=== PATIENT | male | born 1965 | race Caucasian/White ===

== ENCOUNTER 2020-07-02 16:11 | Emergency (ER) | payer OTHER, SELFPAY ==
[2020-07-02 16:21] VITALS: BP 146/84; PULSE 55; RESP 16; TEMP 36.5; O2SAT 98
--- NOTE | 2020-07-02 16:29 | W.ED.GENAD ---
Discharge Plan Disposition Patient Disposition: HOME Condition: Good Discharge Details Clinical Impression: Contusion of right shoulder region, Contusion of rib Primary Care Provider: Hermelinda,Local ED Provider: Chelsie Dubon Home Meds and New Rx's Prescriptions: No Action No Known Home Meds RF: 0 Discharge Instructions Instructions: Acromioclavicular Separation (ED), Rib Contusion (ED) Additional Instructions: Your imaging did not show any dislocation or fracture. However, I am concerned that you may have an injury to your AC joint as we discussed. You may continue with sling while pain persist. Please encourage rest, ice, elevation. Tylenol and/or ibuprofen as needed for discomfort. Please follow-up with primary care in 2 weeks for reevaluation. I have asked care management to reach out to you to discuss referral to a physician locally if needed. If you develop shortness of breath, difficulty breathing, fevers or other new/worsening symptoms to seek care urgently once again. Discharge Data Discharge Date/Time-TO BE ENTERED AT DEPARTURE: 07/02/20 18:10 Medical Decision Making Patient is a pleasant 55-year-old [id number] male presented with chief complaint of right shoulder pain and left rib pain. He reports that prior to arrival he was skiing when he went over the front tip of his skis and landed striking his two areas. He denies striking his head. No loss conscious. He was helmeted at the time of the incident. Denies any nausea or vomiting. No pain in his back. Denies any shortness of breath or difficulty breathing. No nausea or vomiting. No pain in his abdomen. On exam, patient appears nontoxic. No palpable skull fracture. He does have swelling over the distal aspect of the clavicle but no displaced area. Is full range of motion of the elbow, wrist, hand. Range of the shoulder was limited secondary to pain in the clavicle. Neurovascularly intact in this extremity. He does have point tender over the lateral lower left rib. No pain over the abdomen. No crepitus. Lungs are clear in all trivedi. Pelvis is stable and nontender. Plan for x-ray of the left ribs as well as the right clavicle. Patient did take NSAID prior to arrival and reports that this is improving his discomfort. X-ray reviewed by radiologist: FINDINGS: Lungs: Unremarkable. No consolidation. Pleural spaces: Unremarkable. No pleural effusion. No pneumothorax. Heart/Mediastinum: Unremarkable. No cardiomegaly. Bones/joints: Unremarkable. IMPRESSION: No acute findings. FINDINGS: Bones/joints: Minimal acromioclavicular degenerative arthritis. Soft tissues: Normal. IMPRESSION: Minimal acromioclavicular degenerative arthritis Plan 50 findings per patient. Patient was fitted with a sling to help with shoulder discomfort. Given the location, I do remain concerned with potential minor AC joint injury. Elevation. Tylenol and/or ibuprofen for discomfort. Encourage deep inspiration help with his eye pain prevent shallow breathing. I did advise follow-up with primary care in the next 2 weeks if pain is not resolving. Patient unclear if he is resting in the area. I have asked her healthcare consulting manager to reach out to the patient on Saturday to see if follow-up locally will be warranted. Return precautions were discussed. He was continue with Tylenol and/or ibuprofen as needed for discomfort. All his questions or concerns were addressed and is in agreement plan. HPI General Mode of arrival: ambulatory. Date/Time Provider Initiated Documentation: 07/02/20 16:29. Limitations to Documentation: no limitations. Information obtained by: patient and RN notes reviewed. History of Present Illness 55 year old M presents to the emergency department with the chief complaint of right shoulder and left chest wall pain, described as moderate, with intensity rated at 7. Quality is described as aching, and is localized to the chest, left and upper extremity. Patient reports no radiation. Patient started experiencing this minute(s) and it has been constant. Immobilization improves symptom(s), and Medication improves symptom(s), Movement worsens symptoms . Patient notes no other symptoms.. Patient did receive the following treatments prior to arrival, NSAID Related Data Home Medications Medication Instructions Recorded Confirmed Unknown [No Known Home Meds] 07/02/20 07/02/20 Allergies Allergy/AdvReac Type Severity Reaction Status Date / Time No Known Allergies Allergy Unverified 07/02/20 16:26 General Stated Complaint: Trauma GLO: 2 Review of Systems Constitutional Constitutional: Reports as per HPI, Denies chills, Denies fatigue, Denies fever(s), Denies headache(s) and Denies weakness Eyes Eyes: Reports as per HPI, Denies blurry vision, Denies change in vision and Denies loss of vision ENT Ears, Nose, Mouth, and Throat: Denies abnormal hearing and Denies headache(s) Cardiovascular Cardiovascular: Reports as per HPI, Denies chest pain and Denies dyspnea Respiratory Respiratory: Reports as per HPI, Denies cough, Denies pain on inspiration, Denies pain with cough and Denies dyspnea Gastrointestinal Gastrointestinal: Reports as per HPI, Denies abdominal pain, Denies nausea and Denies vomiting Genitourinary Genitourinary: Reports as per HPI and Denies urinary incontinence Musculoskeletal Musculoskeletal: Reports as per HPI Integumentary/Breasts Skin/Breast: Reports as per HPI and Reports unusual bruising Neurologic Neurologic: Reports as per HPI, Denies abnormal hearing, Denies abnormal movements, Denies abnormal speech, Denies headache(s), Denies lack of coordination, Denies localized weakness, Denies loss of vision, Denies seizure-like activity, Denies paresthesias and Denies weakness Endocrine Endocrine: Denies fatigue [facility] Social History Smoking/Tobacco Use Status: Never Smoking risk assessment performed?: Yes Alcohol Intake: current Alcohol Intake frequency: holidays/special occasions only Drug use: Never Do you feel safe at home: Yes Do you feel safe in your relationship?: Yes Exam Const General: cooperative, healthy appearing, comfortable, no acute distress, well developed and well groomed Nutritional Appearance: average body habitus and well nourished Orientation: alert, awake and oriented x3 HENMT Head: normal to inspection, no palpable skull fracture, normocephalic and atraumatic Throat: posterior oropharynx normal Eyes General: appearance normal, both eyes and all related structures Visual Trivedi: normal visual trivedi by confrontation Alignment and Position: alignment normal Periorbital: periorbital findings normal Eyelids: eyelids normal Conjunctivae: conjunctivae normal Pupils: PERRL EOM: EOM intact bilaterally Neck Neck: normal visual inspection, full ROM, no lymphadenopathy, no meningeal signs, trachea midline and supple Chest Chest: normal inspection of the chest, normal palpation of entire chest wall, no crepitus and localized rib tenderness with anteroposterior compression (left lateral lower chest wall) Resp Effort & Inspection: normal respiratory effort, able to speak in complete sentences and no respiratory distress Auscultation: clear to auscultation bilaterally, no rales, no rhonchi and no wheezes Cardio Rate: regular rate Rhythm: regular rhythm Heart Sounds: S1 normal and S2 normal GI Inspection: normal to inspection, no abdominal wall ecchymosis, no edema and non-distended Palpation: soft, no hepatosplenomegaly, not firm, no guarding, no pulsatile masses, not rigid and nontender Auscultation: normal bowel sounds Back/Spine/Pelvis Back: no CVA tenderness Cervical Spine: normal cervical lordosis and cervical ROM normal Thoracic/Lumbar Spine: thoracic and lumbar spine normal to inspection, thoraco-lumbar ROM normal, No thoraco-lumbar ROM limited, No thoraco-lumbar spasm and No thoracic spinal tenderness Pelvis: no pain with anterior-posterior compression and no pain with lateral compression Skin General skin exam: ecchymosis (left shoulder) Neuro General: patient alert, patient awake, patient oriented x3, gait normal, tone normal and moves all extremities Cranial Nerves: CN's II-XI intact bilaterally Cognition: normal cognition Speech: speech normal Gait: normal gait Motor: muscle tone normal throughout and strength 5/5 throughout Sensory Exam: no sensory deficits noted (no saddle paresthesias) Extrem General: capillary refill normal Right upper extremity: normal capillary refill, no joint enlargement, shoulder/upper arm Details: normal to inspection (ecchymosis as drawn), tenderness Location: of the clavicle Laterality: laterally and of the A-C joint, swelling Location: of the A-C joint, axillary nerve sensory function normal and ecchymosis; ROM limited (does not want ot move shoulder secondary to pain), no lacerations, no crepitus, no penetrating wound, no deformity and no unusual warmth, elbow/forearm Details: normal to inspection, normal ROM and distal pulses intact; no tenderness and no swelling, wrist Details: normal to inspection and hand Details: normal to inspection, normal capillary refill, vascular exam Details: radial pulse present and normal capillary refill and normal ROM of fingers; ROM limited Shoulder/upper arm images: 1. focal area of ecchymosis. Tender over this area. Distal clavicle/AC joint. No break in the skin, no palpable deformity. Psych Appearance: grossly normal and well kempt Mental Status: mental status grossly normal Speech and Movement: speech and movement normal Course Vital Signs Vital signs: Vital Signs Temperature 36.5 C 07/02/20 16:21 Pulse 55 L 07/02/20 16:21 Respiratory Rate 16 02/06/21 16:21 Blood Pressure 146/84 H 07/02/20 16:21 Pulse Oximetry 98 07/02/20 16:21 Temperature 36.5 C 07/02/20 16:21 Temperature Source Temporal Artery Scan 07/02/20 16:21 Pulse 55 L 07/02/20 16:21 Respiratory Rate 16 07/02/20 16:21 Respiratory Effort Non-Labored 07/02/20 16:24 Blood Pressure 146/84 H 07/02/20 16:21 Blood Pressure Position Supine 07/02/20 16:21 Pulse Oximetry 98 07/02/20 16:21 Oxygen Delivery Method Room Air 07/02/20 16:21 Oxygen Flow Rate 0 07/02/20 16:21 Pain Level 7 07/02/20 16:21
--- NOTE | 2020-07-02 16:30 | DI.RAD_ITS ---
EXAM: XR CLAVICLE RT CLINICAL HISTORY: fall skiiing TECHNIQUE: 2D digital imaging was performed. COMPARISON: No exams were available for comparison FINDINGS: BONES: No acute fracture is present. No bony destructive lesion is seen. JOINTS: No dislocation present. 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 SOFT TISSUE: Normal IMPRESSION: No acute fracture or dislocation. DATA REPOSITORY: RADIATION DOSE DELIVERED:
--- NOTE | 2020-07-02 16:42 | DI.RAD_ITS ---
EXAM: XR RIBS LT PA CHEST 3V CLINICAL HISTORY: fall skiing TECHNIQUE: 2D digital imaging was performed. COMPARISON: No exams were available for comparison FINDINGS: MEDIASTINUM: Normal. HEART: Normal. PULMONARY VASCULATURE: Normal. LUNGS: Clear. PLEURAL SPACE: No pleural effusion or pneumothorax. BONE:Normal. LEFT RIBS: Normal. OTHER FINDINGS:Normal. IMPRESSION: 1. No acute pulmonary findings. 2. Unremarkable left ribs. DATA REPOSITORY: RADIATION DOSE DELIVERED:
--- NOTE | 2020-07-02 16:56 | NUR.NOTE ---
Nursing Note: Pt placed in sling per SHERIDAN Dubon , right arm. pt tolerated well , RUE radial present
--- NOTE | 2020-07-02 17:36 | DI.VRAD_ITS ---
PROCEDURE INFORMATION: Exam: XR Right Clavicle, Complete Exam date and time: 07/02/2020 4:43 PM Age: 55 years old Clinical indication: Injury or trauma; Fall; Sprain or strain; Clavicle; Right TECHNIQUE: Imaging protocol: XR Right clavicle complete. Any number of views. COMPARISON: No relevant prior studies available. FINDINGS: Bones/joints: Minimal acromioclavicular degenerative arthritis. Soft tissues: Normal. IMPRESSION: Minimal acromioclavicular degenerative arthritis. Dictated and Authenticated by: Maria C Brower MD. Ordering:HERNAN Holguin MD
--- NOTE | 2020-07-02 17:37 | DI.VRAD_ITS ---
PROCEDURE INFORMATION: Exam: XR Left Ribs with PA Chest, 3 Views Exam date and time: 07/02/2020 5:18 PM Age: 55 years old Clinical indication: Injury or trauma; Fall; Rib area, left side; Sprain or strain TECHNIQUE: Imaging protocol: XR Left ribs 3 views with PA chest. COMPARISON: No relevant prior studies available. FINDINGS: Lungs: Unremarkable. No consolidation. Pleural spaces: Unremarkable. No pleural effusion. No pneumothorax. Heart/Mediastinum: Unremarkable. No cardiomegaly. Bones/joints: Unremarkable. IMPRESSION: No acute findings. Dictated and Authenticated by: Maria C Brower MD. Ordering:HERNAN Holguin MD
--- NOTE | 2020-07-02 17:55 | NUR.NOTE ---
Nursing Note: Referral given to Care Management to call patient on Saturday to see if he is going to stay in the area or go back to [place] for his follow up. Then to arrange the follow up. Nicolasa Aleman
== END 2020-07-02 18:10 | disposition home or self-care (01) ==
PROVIDERS: Emergency Provider Physician Assistant
DX: S40.011A Contusion of right shoulder, initial encounter (principal); S20.212A Contusion of left front wall of thorax, initial encounter; V00.321A Fall from snow-skis, initial encounter; Y93.23 Activity, snow (alpine) (downhill) skiing, snowboarding, sledding, tobogganing and snow tubing
CPT/HCPCS: 71101; 99284; 73000